=== PATIENT | female | born 1955 | race Caucasian/White ===

== ENCOUNTER → 2024-02-28 08:58 | Outpatient (REF) | payer OTHER, SELFPAY | LOC: HWRAD 08:58 | PROVIDERS: ATTENDING PHYSICIAN Obstetrics & Gynecology; FAMILY PHYSICIAN Family Medicine | DX: R10.2 Pelvic and perineal pain (principal) | CPT/HCPCS: 76830; 76856 ==

== ENCOUNTER → 2024-04-06 13:35 | Outpatient (REF) | payer OTHER, SELFPAY | LOC: WDC 13:35 | PROVIDERS: ATTENDING PHYSICIAN Obstetrics & Gynecology; FAMILY PHYSICIAN Family Medicine | DX: Z12.31 Encounter for screening mammogram for malignant neoplasm of breast (principal) | CPT/HCPCS: 77063; 77067 ==

== ENCOUNTER → 2024-07-23 11:30 | Outpatient (REF) | payer OTHER, SELFPAY | LOC: HWRAD 11:30 | PROVIDERS: ATTENDING PHYSICIAN Family Medicine | DX: J40 Bronchitis, not specified as acute or chronic (principal) | CPT/HCPCS: 71046 ==

== ENCOUNTER → 2025-04-25 15:01 | Outpatient (REF) | payer OTHER, SELFPAY | LOC: WDC 15:01 | PROVIDERS: ATTENDING PHYSICIAN Obstetrics & Gynecology; FAMILY PHYSICIAN Family Medicine | DX: Z12.31 Encounter for screening mammogram for malignant neoplasm of breast (principal) | CPT/HCPCS: 77063; 77067 ==

== ENCOUNTER → 2025-05-01 08:52 | Outpatient (REF) | payer OTHER, SELFPAY | LOC: WDC 08:52 | PROVIDERS: ATTENDING PHYSICIAN Obstetrics & Gynecology; FAMILY PHYSICIAN Family Medicine | DX: N63.20 Unspecified lump in the left breast, unspecified quadrant (principal) | CPT/HCPCS: 76642 ==

== ENCOUNTER → 2025-05-14 12:25 | Outpatient (REF) | payer OTHER, SELFPAY | LOC: RAD 12:25 | PROVIDERS: ATTENDING PHYSICIAN Obstetrics & Gynecology; FAMILY PHYSICIAN Family Medicine | DX: Z13.820 Encounter for screening for osteoporosis (principal) | CPT/HCPCS: 77080 ==